=== PATIENT | female | born 1965 | race Caucasian/White ===

== ENCOUNTER 2023-07-09 21:49 | Emergency (ER) | payer MEDICARE, SELFPAY ==
[2023-07-09 22:01] VITALS: BP 145/89; PULSE 106; RESP 22; TEMP 36.7; O2SAT 95; BMI 21.6
--- NOTE | 2023-07-09 22:06 | XRR_ITS ---
PROCEDURE INFORMATION: Exam: XR Left Knee Exam date and time: 07/09/2023 10:56 PM Age: 58 years old Clinical indication: Pain; Patient HX: Fall on left knee. Deep laceration to latera side of knee. TECHNIQUE: Imaging protocol: Radiologic exam of the left knee. Views: 3 views. COMPARISON: No relevant prior studies available. FINDINGS: Bones/joints: No acute fracture dislocation. Probable mild medial compartment joint space narrowing. Small osteophytes consistent with osteoarthritis. No significant joint effusion. Soft tissues: Normal. Other findings: Three portable nonweightbearing views submitted. XR/XR knee LT 3V* [id number] IMPRESSION: No acute findings.
--- NOTE | 2023-07-09 22:54 | W.ED.FALL ---
HPI - Fall General: Chief Complaint: Fall Stated Complaint: laceration left knee Time Seen by Provider: 07/09/23 21:56 History of Present Illness: 58-year-old female comes today for a slip and fall on a wet deck. Patient states that there is a ramp for her deck and she was walking down and slipped and fell cutting her left knee. Patient done the same thing last night after the rain. Patient cannot recall her last tetanus. Patient does have a history of diabetes. Patient has a 3 cm laceration to the left lateral knee. Review of Systems General: Reports: 10 or more systems reviewed and unremarkable except in HPI and below Physical Exam Const: COMMON NORMALS: alert HENMT: COMMON NORMALS: normocephalic HEAD & SCALP: normocephalic Neck/C-Spine: COMMON NORMALS: full ROM Chest: COMMONS NORMALS: normal palpation of entire chest wall Resp: COMMON NORMALS: normal respiratory effort GI: COMMON NORMALS: non-tender Back/Pelvis: COMMON NORMALS: thoracic and lumbar spine normal to inspection Extremity: COMMON NORMALS: full ROM Neuro: SENSORIUM/ORIENTATION: Yes alert Psych: COMMON NORMALS: cooperative Skin: TRAUMA: laceration (3 cm linear left knee) Procedures Laceration Laceration 1: Site: lower extremity Side (If applicable): left Size (cm): 3 Description: linear Depth: simple, single layer Local Anesthetic: lidocaine 2% Amount of anesthesia used (mL): 5 Pre-repair: wound explored and irrigated extensively Skin layer closed with: other (Stable) Number of sutures: 4 Course Vital Signs: Vital signs: Vital Signs Temperature 98.1 F 07/09/23 22:01 Pulse Rate 106 H 07/09/23 22:01 Respiratory Rate 22 H 07/09/23 22:01 Blood Pressure 145/89 07/09/23 22:01 Pulse Oximetry 95 07/09/23 22:01 Oxygen Delivery Me thod Room Air 07/09/23 22:01 MDM - Fall Medical Decision Making 58-year-old female comes in with a laceration to the left knee. On exam patient has a 3 cm linear laceration to the left knee. No foreign body or fracture was noted. Differential diagnosis includes foreign body, fracture, need for tetanus, laceration. X-ray was unremarkable. Wound was thoroughly irrigated and closed with 4 barb. Patient tolerated well under local anesthetic. Patient will be covered with antibiotic and given some hydrocodone to help with pain. Patient reports understanding of care plan need for follow-up or return to the ER. All radiology interpretation(s) finalized by discharge Discharge Plan Discharge Patient Disposition: Home Clinical Impression: Knee laceration Qualifiers: Encounter type: initial encounter Laterality: left Qualified Code(s): S81.012A - Laceration without foreign body, left knee, initial encounter Fall from slipping Qualifiers: Encounter type: initial encounter Qualified Code(s): W01.0XXA - Fall on same level from slipping, tripping and stumbling without subsequent striking against object, initial encounter Condition: Stable Prescriptions: New amoxicillin-pot clavulanate 875-125 mg tablet 1 tab PO BID Qty: 20 0RF hydrocodone-acetaminophen 5-325 mg tablet 1 tab PO Q6H PRN (Reason: pain) Qty: 7 0RF Discharge Orders: Discharge ED (Routine); Ordered 07/09/23 Ordered By: Mike Clark Referrals: Toño Lopez MD [Family Provider] - Discharge Diet: Usual diet Discharge Activity: Increase activity as tolerated Patient Instructions: Laceration (ED) Activity Restrictions/Additional Instructions: Keep wound clean and dry. Activity as tolerated. Use acetaminophen and ibuprofen to control pain. Use hydrocodone for severe pain. Take oral antibiotic as directed. Follow-up with primary care in 10 to 14 days for suture removal. Return to ED for new concerns. Coding Level of Care Code ED Controller [employer] for Nate Estes
[2023-07-09] MEDS: tetanus-dipt-pertussis 0.5 mL SDV IM (23:23)
[2023-07-09] MEDS: HYDROcodone-acetaminophen 5-325 mg Tablet 1 TAB PO (23:24)
[2023-07-09] MEDS: cephALEXin 500 mg Capsule PO (23:24)
[2023-07-10 00:01] VITALS: BP 145/89; PULSE 86; RESP 16; TEMP 36.7; O2SAT 95
== END 2023-07-10 00:08 | disposition home or self-care (01) ==
PROVIDERS: Emergency Provider Nurse Practitioner Family; Family Provider Family Medicine
DX: S81.012A Laceration without foreign body, left knee, initial encounter (principal); W01.0XXA Fall on same level from slipping, tripping and stumbling without subsequent striking against object, initial encounter; Z23 Encounter for immunization
CPT/HCPCS: 12002; 73562; 90471; 90715; 99283